=== PATIENT | female | born 1945 | race Caucasian/White ===

== ENCOUNTER → 2018-12-07 | Outpatient (CLI) | payer OTHER, BC ==
[~2018-12-07] VITALS: Ht 167.6 cm; Wt 61.2 kg
[~2018-12-07] MED LIST: ALLEGRA ALLERGY60 MG PO; AMBIEN 5 MG TABL5 M1 PO; ASPIRIN325 PO; AZELASTINE137 MCG/0. NASAL; CALCIUM 600 +1 EAC1 PO; CARISOPRODOL 3350 MG PO; CARVEDILOL12.5 MG PO; CENTRUM SILVER1 EAC4 PO; COLACE100 MG PO; COZAAR 25 MG TA25 M1 PO; DEXILANT60 MG PO; FLONASE 0.05%50 MCG NASAL; METFORMIN HCL500 MG PO; MUCINEX1200 MG PO; PERCOCET 7.5-31 EACH PO; RANITIDINE 150150 M1 PO; RYTHMOL SR225 MG PO; SENNA8.6 MG PO; SINGULAIR 10 MG10 M1 PO; VENTOLIN HFA 1818 GM INH; VITAMIN D2000 UNIT PO; XANAX 0.5 MG0.5 MG PO; ZOCOR20 MG PO
--- NOTE | ~2018-12-07 | HPC ---
[facility] [place] [address] PAIN MANAGEMENT CONSULTATION Name: TITUS DICKSON Sonny [id number] Admission: 12/07/18 ������������������ Attend Phys: Alexx Gipson MD Discharge: ������������������ Date of : 43 Report #: [id number] THIS REPORT FOR: //name// CC: JENNIE Abraham Physician staff Alexx Gipson DATE OF SERVICE: 12/07/2018 CHIEF COMPLAINT: Weakness in the left leg with numbness. HISTORY OF PRESENT ILLNESS: This is an initial consultation for the patient who was sent to me today by Satya Abraham. She has also been followed closely by Hermes Hoyt at [facility]. He asked her to see me today for further consultation. I will say at the outset that the patient by her own definition is highly organized and obsessive compulsive about her health issues. She provided me with 4 single space type notes documenting all of her medications, time of day that they are taken by dose and then based surgery and diagnosis, treatment history dating back to the 1950s. She also provided me with a list of all the physicians that she has seen over a number of years including their contact information and addresses. This was followed finally by miscellaneous test history and dates dating back to 1992, including all x-rays and treatments and injections. I note there that she has seen a previous pain specialist, [facility]. Sherman [facility] for epid[facility] and sacroiliac [facility] and also Dr. Sterling Cody who also provided some injections for her at [facility]. Today, her pain is described as a level of 7/10 at its worst, 0-4/10 depending on activity. She repeated several times that she was not here today for pain, but mostly for the sensation of weakness and loss of sensation, which she is reluctant to call numbing in her left leg. She was also told that she had some weakness. Later in the exam, it was noted there was no evidence of weakness, she was thrilled. She reports that she has had good results with therapy with Hermes Hoyt. She is hoping that she can continue to improve. When she has had pain, it is generally later in the day. She starts her morning at her best. She is able to get out of bed and get going with little discomfort. As the day goes on, she has pain in the sacral region that radiates into the buttock. She describes it as a heavy sensation, pushing against and forward on her pelvis. MEDICATIONS: Coreg, propafenone, Dexilant, multivitamins, alprazolam at [address] [address] PAIN MANAGEMENT CONSULTATION Name: TITUS DICKSON Room #: REG LY Soto#: [id number] Admission: 12/07/18 ������������������ Attend Phys: Alexx Gipson MD Discharge: ������������������ Date of : 43 Report #: [id number] bedtime, Senokot-S, oxycodone 7.5/325 as needed. ALLERGIES: None. She does overreact to stimulants, however. PAST MEDICAL HISTORY: Anemia, asthma, hypertension, gastritis, history of anxiety, chronic; history of breast cancer, gastroparesis, a documented herniated nucleus pulposus, L4-L5 in 1986; diagnosis of sacroiliitis and piriformis syndrome; history of osteoporosis, a second herniated disk identified in 10/2018 at L3-L4. SOCIAL HISTORY: She is retired, . Her is with her today. He seems to be worn out by her description of her chronic pain. She denies use of tobacco or alcohol. 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 PHYSICAL EXAMINATION: GENERAL: A pleasant 73-year-old female, anxious and a bit obsessive compulsive. VITAL SIGNS: Her blood pressure 147/78, heart rate 77, respirations 16, O2 sat 100%. She is 5 feet 6 inches, 135 pounds. BMI is 21.8. NEUROLOGIC: When I entered the room, she was on her hands and knees on the examining table. She was able to easily move from sitting to standing position. She ambulates without antalgic features. Examination of the spine reveals normal alignment. There is excellent range of motion in flexion, extension, rotation and [id number] tilt. In the straight leg raising exam sitting and supine, there is no reproduction of radiculopathy at this time. Deep tendon reflexes were 2+ knees and ankles. Apparently, this is remarkable to her and she had had diminished knee jerk reflex in the past. Ankle jerk reflexes were diminished to trace bilaterally. Sensation is intact with no focal numbness noted today during exam, although she complains subjectively have a sensation of fullness or numbness in the left leg in the L5-S1 distribution. She has no pain or numbness into the great toe on either leg. Strength exam is normal, hip flexion and extension, abduction and adduction performed without any noticeable weakness or asymmetry. Leg extension performed without weakness. Plantar dorsiflexion, internal and external rotation of the feet performed without any weakness. DIAGNOSTIC STUDIES: MRI scan is reviewed and it does show that she has an L3-L4 generalized disk bulge with a superimposed left paracentral disk extrusion with material extending superiorly along the left posterior margin of the L3 vertebral body. This compresses the left L4 nerve root and contributes to moderate left-sided neural foraminal stenosis at L3-L4. It also extends into the lateral recess. There is also some evidence of disk disease at L4-L5 on the contralateral side. IMPRESSION: Lumbar radiculopathy, although it is improving. Her pain is modest and her weakness seems to be improving. There is every reason to assume that [facility] [address] [place] [address] PAIN MANAGEMENT CONSULTATION Name: TITUS DICKSON Sonny Room #: REG LY Charlse#: [id number] Admission: 12/07/18 ������������������ Attend Phys: Alexx Gipson MD Discharge: ������������������ Date of : 43 Report #: [id number] she might continue to improve over time and presented with this optimistic outlook. Much philosophizing went on today discussing chronic pain and its management. We discussed the need to sometimes focus less on the minutiae and more on the day-to-day task of managing and functioning in spite of the pain. An epidural injection may be of benefit for her. It would be glad to see her back in about one month and consider an epidural injection at that time if she is not better for the L3-L4 herniated disk. ��������������������������������������������� ���������������������������������������� By: ��������������������������������������������� [id number] Alexx Gipson MD /nt
[2018-12-07 08:37] VITALS: BP 147/78
--- NOTE | 2018-12-07 09:28 | NUR ---
Pain Clinic Assessment: 1. History of Osteoarthritis: * DIAGNOSED 10/2018 History of Rheumatoid Arthritis: Not Applicable 2. Height: 5 ft. 6 in. 167.6 cm. Weight: 135.0 lb. oz. 61.236 kg. Patient's BMI: 21.8 3. Vital Signs: BP: 147/78 Pulse: 77 Resp: 16 Temp: 02 Sat: 100 ECG Mon: 4. Pain Intensity: 0-4 AVG/7 AT TIMES 5. Fall Risk: Dizziness: Y Needs help standing or walking: N Fallen in the last 3 months: N Fall risk comments: 6. Patient on Blood Thinner: None 7. History of Hypertension: Y 8. Opioid Therapy greater than 6 weeks: Y Opiate Contract Signed: 9. Risk Assessment Tool Provided: 10. Functional Assessment Tool: 11. Recreational Drug Use: Never Drug Type: Tobacco Use: Never Smoker Tobacco Type: Amount or Packs/day: How Many Years: Alcohol Use: No Frequency: Quant:
== END ==
LOC: PAIN 06:55
DX: M54.16 Radiculopathy, lumbar region (principal); J45.909 Unspecified asthma, uncomplicated; I10 Essential (primary) hypertension; F41.9 Anxiety disorder, unspecified; Z85.3 Personal history of malignant neoplasm of breast; M81.0 Age-related osteoporosis without current pathological fracture; Z79.899 Other long term (current) drug therapy

== ENCOUNTER → 2019-01-04 | Outpatient (CLI) | payer OTHER, BC ==
[~2019-01-04] VITALS: Ht 167.6 cm; Wt 62.8 kg
[~2019-01-04] MED LIST changes: +IBANDRONATE SO150 MG PO
--- NOTE | ~2019-01-04 | HPC ---
[facility] [place] [address] PAIN MANAGEMENT CONSULTATION Name: TITUS DICKSON Room #: REG [facility].#: [id number] Admission: 01/04/19 ������������������ Attend Phys: Alexx Gipson MD Discharge: ������������������ Date of : 43 Report #: [id number] THIS REPORT FOR: //name// CC: [facility] Physician staff Alexx Gipson DATE OF SERVICE: 01/04/2019 The patient returns to [facility] today and has made some improvement since she was last seen 1 month ago. She reports that her pain intensity is less. She is upbeat about her progress and understands that physical therapy and rehabilitative approach will take some time. Today, she reports her pain is a 0 while squatting. In fact, she is squatting between 2 chairs when I come into the room. Other than this is unusual presentation, she is quite pleasant and reports that she is pleased with her progress. Her biggest complaint today is that she has some ongoing numbness that follows the left leg dermatomal pattern consistent with a radiculopathy. She does indeed have a disk bulging with a left paracentral extrusion along posterior margin of the L3 vertebral body, which could be causing the neuropathic symptoms into her leg. She has had epidural injections from Dr. Sherman and also from Dr. Cody. I do not know if they injected her as high as L3-L4 which would be atypical unless she had an MRI present to direct the injection. I have suggested the possibility of a lumbar 3-4 or lumbar 2-3 left paramedian epidural injection or a transforaminal injection to evaluate its response, but at this point, she would like to hold off on injections. I am fine with that. She did not do well with them before. In the meantime, she will continue with her physical therapy approach and we will continue trying to taper her opioid use. That is the second positive, she reports that she has been able to reduce her use of oxycodone 7.5/325. These are prescribed by Dr. Santiago. This is as a result of her ongoing therapy. IMPRESSION: Significant improvement in self-management of chronic intractable low back pain with radiculopathy. [facility] [address] [place] [address] PAIN MANAGEMENT CONSULTATION Name: TITUS DICKSON Room #: [facility] [id number] Admission: 01/04/19 ������������������ Attend Phys: Alexx Gipson MD Discharge: ������������������ Date of : 43 Report #: [id number] RECOMMENDATIONS: Continue with current therapy with consideration for an epidural injection to help with left leg numbness. ��������������������������������������������� ���������������������������������������� By: ��������������������������������������������� [id number] Alexx Gipson MD /nt
[2019-01-04 10:47] VITALS: BP 143/80
--- NOTE | 2019-01-04 11:09 | NUR ---
Pain Clinic Assessment: 1. History of Osteoarthritis: * DIAGNOSED 10/2018 History of Rheumatoid Arthritis: Not Applicable 2. Height: 5 ft. 6 in. 167.6 cm. Weight: 138.4 lb. oz. 62.778 kg. Patient's BMI: 22.3 3. Vital Signs: BP: 143/80 Pulse: 70 Resp: 14 Temp: 02 Sat: 100 ECG Mon: 4. Pain Intensity: 0 while sqatting 5. Fall Risk: Dizziness: Y Needs help standing or walking: N Fallen in the last 3 months: N Fall risk comments: 6. Patient on Blood Thinner: None 7. History of Hypertension: Y 8. Opioid Therapy greater than 6 weeks: Y Opiate Contract Signed: 9. Risk Assessment Tool Provided: 10. Functional Assessment Tool: 11. Recreational Drug Use: Never Drug Type: Tobacco Use: Never Smoker Tobacco Type: Amount or Packs/day: How Many Years: Alcohol Use: No Frequency: Quant:
== END ==
LOC: PAIN 06:42
DX: M54.16 Radiculopathy, lumbar region (principal); G89.4 Chronic pain syndrome; Z79.899 Other long term (current) drug therapy

== ENCOUNTER → 2019-03-18 | Outpatient (CLI) | payer OTHER, BC ==
[~2019-03-18] VITALS: Ht 167.6 cm; Wt 63.5 kg
--- NOTE | ~2019-03-18 | HPC ---
[facility] [place] [address] PAIN MANAGEMENT CONSULTATION Name: TITUS DICKSON Sonny Room #: REG [facility] Irma.#: [id number] Admission: 03/18/19 ������������������ Attend Phys: Alexx Gipson MD Discharge: ������������������ Date of : 43 Report #: [id number] THIS REPORT FOR: //name// CC: JENNIE BARRIENTOS Physician staff Alexx Gipson DATE OF SERVICE: 03/18/2019 Followup visit for low back pain with radiculopathy. The patient returns to pain clinic today in followup. She was last seen on 01/04/2019. At that time, she was assessed and felt to be a candidate for an epidural steroid injection. She was interested at that time in pursuing a more conservative management. She is here today for an injection. I reviewed her MRI scan and it shows that she has an L3-L4 disk bulge with superimposed left paracentral disk extrusion extending superiorly along the left superior margin on the L3 vertebral body, compressing the L4 nerve root. This contributes to left-sided neural foraminal stenosis at L3-L4. This is consistent with her symptoms. She complains today of pain in her left leg with weakness and pain into the buttocks. She also has numbness and tingling in all of her toes. PHYSICAL EXAMINATION: Pleasant female. Blood pressure 144/75, heart rate 68, respirations 14 and BMI is 22.6. When I entered the room, she was on her hands and knees on the bed. She often assumes interesting positions, squatting to cause a spinal flexion which takes pressure off the nerve root. She has a positive straight leg raising on the left, which is consistent with her symptoms radiating along the left L4 distribution to the knee. She has some mild weakness with hip flexion on the left as well. Leg extension, plantar and dorsiflexion of the foot are performed without any weakness. Deep tendon reflexes are diminished bilaterally at the lower extremities. She has good range of motion of the lumbar spine. IMPRESSION: Lumbar radiculopathy with L3-L4 disk herniation. RECOMMENDATIONS: Epidural steroid injection under fluoroscopic guidance. DESCRIPTION OF PROCEDURE: She was taken to the fluoroscopic suite, where she was placed prone and skin was prepped with ChloraPrep. It should be noted that on examination by fluoroscopy. She has much more significant plain film changes at the L4-L5 level, which were not noted on the MRI. Skin was anesthetized over the L4-L5 interspace. A 20-gauge Tuohy epidural needle advanced on first attempt in the epidural space. I injected a mL of Omnipaque and good spread of dye was seen to extend cephalad into the L3 region and beyond, primarily on the [address] [address] PAIN MANAGEMENT CONSULTATION Name: TITUS DICKSON Room #: REG LY Soto#: [id number] Admission: 03/18/19 ������������������ Attend Phys: Alexx Gipson MD Discharge: ������������������ Date of : 43 Report #: [id number] left, with extension in the left lateral recess. I then injected a total of 4 mL of 0.5% lidocaine mixed with 80 mg triamcinolone. She tolerated the procedure very well. Pain was reduced to 1 at discharge. Followup visit planned in 1 month. ��������������������������������������������� ���������������������������������������� By: ��������������������������������������������� [id number] Alexx Gipson MD /nt
[2019-03-18 12:48] VITALS: BP 144/75
--- NOTE | 2019-03-18 12:51 | NUR ---
Pain Clinic Assessment: 1. History of Osteoarthritis: * DIAGNOSED 10/2018 History of Rheumatoid Arthritis: Not Applicable 2. Height: 5 ft. 6 in. 167.6 cm. Weight: 140.0 lb. oz. 63.504 kg. Patient's BMI: 22.6 3. Vital Signs: BP: 144/75 Pulse: 68 Resp: 14 Temp: 02 Sat: 100 ECG Mon: 4. Pain Intensity: 3 5. Fall Risk: Dizziness: N Needs help standing or walking: N Fallen in the last 3 months: N Fall risk comments: 6. Patient on Blood Thinner: None 7. History of Hypertension: Y 8. Opioid Therapy greater than 6 weeks: Y Opiate Contract Signed: 9. Risk Assessment Tool Provided: 10. Functional Assessment Tool: 11. Recreational Drug Use: Never Drug Type: Tobacco Use: Never Smoker Tobacco Type: Amount or Packs/day: How Many Years: Alcohol Use: No Frequency: Quant:
== END | disposition home or self-care (01) ==
LOC: PAIN 06:57
DX: M51.16 Intervertebral disc disorders with radiculopathy, lumbar region (principal); G89.29 Other chronic pain; Z79.899 Other long term (current) drug therapy; Z79.82 Long term (current) use of aspirin; Z98.890 Other specified postprocedural states